=== PATIENT | female | born 1945 | race Caucasian/White ===

== ENCOUNTER → 2023-05-24 12:52 | Outpatient (REF) | payer MEDICARE, SELFPAY | LOC: WDC 12:52 | PROVIDERS: ATTENDING PHYSICIAN Family Medicine | DX: Z12.31 Encounter for screening mammogram for malignant neoplasm of breast (principal) | CPT/HCPCS: 77063; 77067 ==

== ENCOUNTER 2023-07-17 23:31 | Emergency (ER) | payer MEDICARE, SELFPAY ==
[2023-07-17 23:46] VITALS: BP 138/86
[2023-07-17 23:53] VITALS: BP 145/85
[2023-07-18] VITALS: BP 152/80
[2023-07-18 00:23] LABS: ALT (SGPT) 28 U/L (0-35); AST (SGOT) 31 U/L (14-36); Albumin 4.4 g/dl (3.5-5.0); Alkaline Phosphatase 94 U/L (38-126); Blood Urea Nitrogen 15 mg/dl (7-17); Calcium 9.2 mg/dl (8.4-10.2); Carbon Dioxide 25 mmol/L (22-30); Chloride 95 mmol/L (98-107); Glucose 189 mg/dl (70-99); Sodium 130 mmol/L (135-145); Total Bilirubin 0.5 mg/dl (0.2-1.3); Total Protein 7.1 g/dl (6.3-8.2); eGFR > 60.00
[2023-07-18 00:32] LABS: % Eosinophils 1.8 % (0-6); % Immature Granulocytes 0.8 % (0-0.5); % Lymphocytes 38.9 % (20.5-51.1); % Monocytes 11.4 % (1.7-9.3); % Neutrophils 46.1 % (42.2-75.2); Absolute Basophils 0.1 10^3/uL (0-0.2); Absolute Eosinophils 0.2 10^3/uL (0-0.7); Absolute Immature Granulocytes 0.1 10^3/uL (0-0.05); Absolute Lymphocytes 3.3 10^3/uL (1.2-3.4); Absolute Neutrophils 3.9 10^3/uL (1.4-6.5); Hematocrit 34.7 % (37.0-47.0); Mean Corp Hgb Conc. 34.6 g/dL (33.0-37.0); Mean Corpuscular Volume 86.8 fL (81.0-99.0); Mean Platelet Volume 11.6 fL (7.4-10.4); Nucleated Red Blood Cells % 0 %; Platelet Count 213 10^3/uL (130-400); White Blood Cell Count 8.4 10^3/uL (4.8-10.8)
--- NOTE | 2023-07-18 00:33 | ED.GENMED ---
History of Present Illness
General
Chief Complaint: Fainting Sensation
Source: patient
Exam Limitations: none
Time Seen by Provider: 07/17/23 23:56
Travel History
Have you had any contact with someone who has COVID-19?: No
Do you have any symptoms of coronavirus? Fever > 100 degrees, chills, cough, shortness of breath, sore throat, loss of taste or smell, muscle aches, or headache?: No
History of Present Illness
History of Present Illness:
This is a 77 year old female that comes in with multiple complaints. States that for the past few days her BP has etienne elevated. State that today she felt nauseated and lightheaded. States that at one time today her BP was
172/ 90. State that she has had lower back pain and right sided abd pain and bloating. States that she also felt SOB. Denies any fever, chills, chest pain, vomiting, diarrhea, headache, urinary burning.
Past History
Past History
ED Past Medical History: CAD, GERD, HTN, Hypercholesterolemia, NIDDM (splenectomy), [place] and Other (kidney stone, anemia, UTI, Chest pain, Renal calculus, Iron Def anemia, sepsis)
ED Past Surgical History: Appendectomy, Cardiac (Stents X 1), Tonsilectomy, Urological and Other (splenectomy)
Social History
Tobacco: Non-smoker
Alcohol: None
Personal:
Living: with family
Review of Systems
Review of Systems
All Other Systems: ROS reviewed and negative except as documented in HPI and ROS
Constitutional: Reports no symptoms; Denies fever or chills
EENT: Reports no symptoms
Respiratory: Reports trouble breathing; Denies cough
Cardiac: Reports no symptoms; Denies chest pain
ABD/GI: Reports abdominal pain and nausea; Denies vomiting or diarrhea
: Reports no symptoms; Denies dysuria, frequency or urgency
Musculoskeletal: Reports back pain
Skin: Reports no symptoms
Neurological: Reports other (Lightheaded); Denies headache
Psychiatric: Reports no symptoms
Phy Exam
General Physical Exam
General Presentation: no apparent distress
General age: appears stated age
General Skin: warm and dry
General Habitus: elderly
General Mental: alert
General Hydration: appears well hydrated
ENT Exam
ENT Exam: TM's normal, pharynx normal and neck supple
Eye Exam
Eye Exam: EOMI
Cardiovascular Exam
Cardiovascular Exam: regular rate/rhythm, no edema and normal peripheral pulses
Pulmonary Exam
Pulmonary Exam: lungs clear, no respiratory distress, no rales, chest non tender, no crackles, no rhonchi, no wheezing and no cough
Gastrointestinal Exam
Gastrointestinal Exam: normal bowel sounds, soft, no organomegaly, no pulsatile mass, non distended and tender (Right Sided abd tenderness with palpation)
Musculoskeletal Exam
Musculoskeletal Exam: full ROM and no edema
Skin Exam
Skin Exam: normal color, warm/dry, no rash and no petechia
Psychiatric Exam
Psychiatric Exam: normal mood/affect
Course
Orders/Labs/Results
Orders:
Orders
07/17/23 23:36
Electrocardiogram (*1) Urgent
Reason for Study: Syncope
EKG- Treatment ONCE
Complete Blood Count/With Diff Urgent
Comprehensive Metabolic Panel Urgent
Troponin I Urgent
07/18/23 00:31
0.9% Sodium Chloride 1000 ml [Nss] 1,000 ml IV BOLUS
Ondansetron Injectable [Zofran] 4 mg IV NOW STA
07/18/23 00:32
CT Abd/pel (oral only)-DH Only Urgent
Comment: Marceilna did not want to cx asked tech to modify
Reason For Exam: rIGHT sIDED ABD PAIN
CR Chest - 2 Views Urgent
Comment:
Reason For Exam: sob
07/18/23 00:54
Urinalysis Reflex To Culture Urgent
Date Specimen was Collected: 07/18/23
Time Specimen was Collected: 00:52
Urine Microscopic Reflex Cult Urgent
Urine Culture Urgent
ANGIE Source: U
Specimen Description:
Date Specimen was Collected: 07/18/23
Time Specimen was Collected: 00:52
07/18/23 01:03
Iohexol [Omnipaque] 50 ml .ROUTE .STK-MED ONE
07/18/23 01:06
Iohexol [Omnipaque] See Protocol PO NOW STA
Abnormal Lab Results
07/18/23 07/18/23
00:01 00:54
RBC 4.00 L 10^6/uL
(4.20-5.40)
Hct 34.7 L %
(37.0-47.0)
MPV 11.6 H fL
(7.4-10.4)
Abs Immat Gran (auto) 0.1 H 10^3/uL
(0-0.05)
Absolute Monos (auto) 1.0 H 10^3/uL
(0.1-0.6)
Immature Gran % 0.8 H %
(0-0.5)
Monocytes % 11.4 H %
(1.7-9.3)
Sodium 130 L mmol/L
(135-145)
Chloride 95 L mmol/L
(98-107)
Glucose 189 H mg/dl
(70-99)
Leukocyte Esterase Rfl 1+ A
(Negative)
Urine RBC 3-6 A /HPF
(0-2)
Urine Bacteria (Reflex) Moderate A
(Negative)
Urine Glucose 1+ A
(Negative)
07/18/23 00:01
07/18/23 00:01
Vital Signs
Initial and Last Documented VS:
Initial Vital Signs
Temp Pulse Resp BP Pulse Ox
98.1 F 89 16 138/86 99
07/17/23 23:46 07/17/23 23:46 07/17/23 23:46 07/17/23 23:46 07/17/23 23:46
Last Documented Vital Signs
Temp Pulse Resp BP Pulse Ox
98.1 F 95 19 140/85 97
07/17/23 23:46 07/18/23 03:30 07/18/23 03:30 07/18/23 03:01 07/18/23 00:30
MDM/Problems Addressed
Differential Diagnosis Includes:
Renal calculus, UTI, Hypertension
MDM/Problems Addressed:
This is a 77 year old female that comes in with c/o elevated BP, abd pain and low back pain. States that her BP has been elevated for the past few days and today she was nauseated, lightheaded and had some low back pain.
Will get labs. CT scan, give IV fluids and get urine.
Back into see patient. Explained that her blood work shows that her Sodium is a little low, Otherwise her blood work is normal. Patient troponin is normal and the CT of the abd is negative for any acute process. Patient has low back pain and her abd
discomfort is most likely related to the low back pain as the nerves wrap around to the abd. Patient to use Heat or ice to the low back. Tylenol for pain. Follow up with the PCP on Friday as scheduled. RETURN WITH ANY CONCERNS.
Chronic conditions affecting care:
Renal calculus,
Chronic conditions affecting care: HTN
Acute Exacerbation and/or Progression of Chronic Illness: HTN
*Radiology
Radiology exam reviewed: preliminary read by ED provider (Chest- negative for active disease), radiology read reviewed (CT night hawk- Suboptimal exam without IV Contrast. No obstructing renal stones. NO boel obstruction. Pleural calcified plaques
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 Small hiatal hernia. No cholecystitis or pancreatitis. Spleen is atrophic or surgically absent. Status post ) and other (CT conto- appendectomy. Litzy mesentery with mesenteric
adenopathy reflecting chronic sclerosing mesenteritis. )
*Pulse Oximetry
Patient hypoxic: no
*EKG
Interpreted by ED Provider?: Yes
Heart Rate: 92
Rate: normal
Rhythm: sinus
[place]: normal axis
Interval: normal interval
QRS Pattern: normal QRS
Ischemia: non-specific ST changes (and T wave- III, aVR, V1, V2, Checked by Dr. Warner)
*[place] Interpretation
Rate: normal
Heart Rate: 87
Rhythm: sinus
*Critical Care Note
Total Time (30-74mins, 75-104mins- exclusive of procedures): Not Applicable
ED Attending Note
-
Portions of this chart may have been created with voice recognition software.� Occasional wrong word or��sound alike� substitutions may have occurred due to the inherent limitations of voice recognition software.
Discharge Plan
Departure
Patient Disposition: Home (Routine Discharge)
Date of Disposition: 07/18/23
Time of Disposition: 04:05
Patient with high blood pressure during this ER visit?: Yes
Condition: Good
Covid-19: Not Applicable
Discharge Problem:
Low back pain, Abdominal pain
Instructions: Low Back Pain (DC), Abdominal Pain, Adult ED, BLOOD PRESSURE
Prescriptions:
No Action
aspirin 81 MG tablet,delayed release (DR/EC)
81 mg PO DAILY
metformin 500 MG tablet extended release 24 hr
500 mg PO QPM
Hold Instructions: Resume on 02/21/22. Restart usual dose of metformin 02/21/22
metoprolol tartrate 50 mg Tablet
50 mg PO BID Qty: 60 11RF
Rx Instructions:
Incr Lopressor(metoprolol tartrate)to 50 mg(two 25 mg tabs or one 50 mg tab)2x a day
atorvastatin 80 mg Tablet
80 mg PO QPM Qty: 30 11RF
pantoprazole [Protonix] 40 mg tablet,delayed release (DR/EC)
40 mg PO DAILY Qty: 30 11RF
Brilinta 90 mg tablet
90 mg PO BID Qty: 60 11RF
Referrals:
Valery Richardson MD [Family Provider] - 07/21/23
Activity Restrictions/Additional Instructions:
As discussed, your blood work shows that your Sodium is low. Please try eating some canned soup or boxed food to help increase your sodium level. Please limit your water intake to 6-8oz glasses daily. Your abdominal pain may be cause by your low
back pain as the nerves from the back wrap around to the abd. There is nothing acute on the CT scan. Follow up with the family doctor on Friday as scheduled. IF YOU HAVE ANY OTHER CONCERNS PLEASE RETURN TO THE EMERGENCY ROOM.
Interventions
Interventions:
*Risk Screen - Suicide Last Done: 07/17/23 23:46
*General Assessment Last Done: 07/17/23 23:46
*Neglect/Abuse Screening Last Done: 07/17/23 23:46
ED- Cardiac Assessment Last Done: 07/18/23 00:30
ED- Neurological Assessment Last Done: 07/18/23 00:30
Discharge Date and Time
Print Language: FRENCH
[2023-07-18 00:36] LABS: Troponin I < 0.012 ng/ml
[2023-07-18] MEDS: NSS 1000 IV (00:43)
[2023-07-18] MEDS: ZOFRAN 4 MG IV (00:43)
[2023-07-18 01:01] LABS: Urine Albumin Negative (Neg - Trace); Urine Bilirubin Negative (Negative); Urine Character Clear (Clear); Urine Color Yellow; Urine Glucose 1+ (Negative); Urine Ketone Negative (Negative); Urine Leukocyte 1+ (Negative); Urine Nitrite Negative (Negative); Urine Occult Blood Negative (Negative); Urine Urobilinogen Negative (Neg - 1+)
[2023-07-18] MEDS: OMNIPAQUE 50 ML PO (01:07)
[2023-07-18 01:29] LABS: Urine Squamous Cell >30 /LPF (Few)
[2023-07-18 01:33] LABS: Urine Bacteria Moderate (Negative)
[2023-07-18 03:01] VITALS: BP 140/85
== END 2023-07-18 04:46 | disposition home or self-care (01) ==
LOC: EMR 23:31
PROVIDERS: Clinical Nurse Specialist Family Health; Emergency Medicine; EMERGENCY PHYSICIAN Emergency Medicine; FAMILY PHYSICIAN Family Medicine
DX: M54.50 Low back pain, unspecified (principal); R10.9 Unspecified abdominal pain; I25.10 Atherosclerotic heart disease of native coronary artery without angina pectoris; K21.9 Gastro-esophageal reflux disease without esophagitis; I10 Essential (primary) hypertension; E78.00 Pure hypercholesterolemia, unspecified; E11.9 Type 2 diabetes mellitus without complications; I25.2 Old myocardial infarction; D50.9 Iron deficiency anemia, unspecified
CPT/HCPCS: 99284; 96374; 71046; 74176; 80053; 81003; 81015; 84484; 85025; 87086; 93005

== ENCOUNTER → 2023-08-08 08:20 | Outpatient (REF) | payer MEDICARE, SELFPAY | LOC: PAVMRI 08:20 | PROVIDERS: ATTENDING PHYSICIAN Pain Medicine Interventional Pain Medicine; FAMILY PHYSICIAN Family Medicine | DX: M54.16 Radiculopathy, lumbar region (principal) | CPT/HCPCS: 72148 ==

== ENCOUNTER → 2023-08-20 08:09 | Outpatient (REF) | payer MEDICARE, SELFPAY | LOC: RCS 08:09 | PROVIDERS: ATTENDING PHYSICIAN Nuclear Medicine Nuclear Cardiology; FAMILY PHYSICIAN Family Medicine | DX: I25.10 Atherosclerotic heart disease of native coronary artery without angina pectoris (principal); I25.2 Old myocardial infarction; Z95.5 Presence of coronary angioplasty implant and graft; I10 Essential (primary) hypertension | CPT/HCPCS: 93306 ==

== ENCOUNTER 2024-02-11 22:54 | Emergency (ER) | payer MEDICARE, SELFPAY ==
[2024-02-11 22:59] VITALS: BP 181/90
[2024-02-12 02:11] VITALS: BMI 26.9
[2024-02-12] MEDS: ZOFRAN 4 MG IV (02:27)
[2024-02-12] MEDS: DILAUDID 0.5 MG IV (02:27)
[2024-02-12] MEDS: NSS 1000 IV (02:27)
[2024-02-12 02:30] LABS: % Basophils 0.4 % (0-2); % Eosinophils 1.3 % (0-6); % Immature Granulocytes 0.4 % (0-0.5); % Lymphocytes 23.9 % (20.5-51.1); % Monocytes 10.4 % (1.7-9.3); % Neutrophils 63.6 % (42.2-75.2); Absolute Basophils 0.1 10^3/uL (0-0.2); Absolute Eosinophils 0.2 10^3/uL (0-0.7); Absolute Immature Granulocytes 0.1 10^3/uL (0-0.05); Absolute Lymphocytes 3.1 10^3/uL (1.2-3.4); Absolute Monocytes 1.3 10^3/uL (0.1-0.6); Absolute Neutrophils 8.1 10^3/uL (1.4-6.5); Hematocrit 35.9 % (37.0-47.0); Hemoglobin 12.2 g/dL (12.0-16.0); Mean Corpuscular Hgb 28.8 pg (27.0-31.0); Mean Corpuscular Volume 84.9 fL (81.0-99.0); Mean Platelet Volume 11.7 fL (7.4-10.4); Nucleated Red Blood Cells % 0 %; Platelet Count 201 10^3/uL (130-400); Red Blood Cell Count 4.23 10^6/uL (4.20-5.40); Red Cell Dist. Width 14.6 % (11.5-14.5); White Blood Cell Count 12.8 10^3/uL (4.8-10.8)
[2024-02-12 02:35] VITALS: BP 145/67
[2024-02-12 02:49] LABS: ALT (SGPT) 41 U/L (0-35); AST (SGOT) 36 U/L (14-36); Albumin 4.5 g/dl (3.5-5.0); Alkaline Phosphatase 142 U/L (38-126); Blood Urea Nitrogen 17 mg/dl (7-17); Calcium 9.4 mg/dl (8.4-10.2); Carbon Dioxide 23 mmol/L (22-30); Chloride 99 mmol/L (98-107); Estimated Creatinine Clearance 57 ml/min; Glucose 120 mg/dl (70-99); Potassium 3.9 mmol/L (3.5-5.1); Sodium 132 mmol/L (135-145); Total Bilirubin 1.2 mg/dl (0.2-1.3); Total Protein 7.3 g/dl (6.3-8.2); eGFR > 60.00
[2024-02-12 02:56] LABS: Urine Albumin Negative (Neg - Trace); Urine Bilirubin Negative (Negative); Urine Character Clear (Clear); Urine Color Yellow; Urine Glucose Negative (Negative); Urine Ketone Negative (Negative); Urine Leukocyte Negative (Negative); Urine Nitrite Negative (Negative); Urine Occult Blood Negative (Negative); Urine Urobilinogen Negative (Neg - 1+)
--- NOTE | 2024-02-12 02:56 | ED.GENMED ---
History of Present Illness
<Elayne Wall NP - Last Filed: 02/12/24 15:09>
General
Chief Complaint: Female Yarn Conditioner/Gu symptoms
Source: patient
Exam Limitations: none
Time Seen by Provider: 02/12/24 01:31
Nursing documentation reviewed up to this point in time: agreed with
History of Present Illness
History of Present Illness:
Patient to ED with complaint of right flank pain. Symptoms started today. History of kidney stones but states this feels different. TOok home UTI test and was positive. Brought to ED by spouse for eval.
Past History
<Elayne Wall NP - Last Filed: 02/12/24 15:09>
Past History
ED Past Medical History: CAD, GERD, HTN, Hypercholesterolemia, NIDDM (splenectomy), [place] and Other (kidney stone, anemia, UTI, Chest pain, Renal calculus, Iron Def anemia, sepsis)
ED Past Surgical History: Appendectomy, Cardiac (Stents X 1), Tonsilectomy, Urological and Other (splenectomy)
Social History
Tobacco: Non-smoker
Alcohol: None
Personal:
Living: with family
Review of Systems
<Elayne Wall NP - Last Filed: 02/12/24 15:09>
Review of Systems
Allergies reviewed?: Yes
All Other Systems: ROS reviewed and negative except as documented in HPI and ROS
Constitutional: Reports no symptoms
EENT: Reports no symptoms
Respiratory: Reports no symptoms
Cardiac: Reports no symptoms
ABD/GI: Reports no symptoms
: Reports flank pain
Musculoskeletal: Reports no symptoms
Skin: Reports no symptoms
Neurological: Reports no symptoms
Psychiatric: Reports no symptoms
Phy Exam
<Elayne Wall NP - Last Filed: 02/12/24 15:09>
General Physical Exam
General Presentation: well appearing and mild distress
General age: appears stated age
General Skin: warm and dry
General Habitus: normal
Cardiovascular Exam
Cardiovascular Exam: regular rate/rhythm and no edema
Pulmonary Exam
Pulmonary Exam: no respiratory distress and chest non tender
Gastrointestinal Exam
Gastrointestinal Exam: normal bowel sounds, non tender, soft, no organomegaly and non distended
Musculoskeletal Exam
Musculoskeletal Exam: full ROM
Skin Exam
Skin Exam: normal color, warm/dry and no rash
Psychiatric Exam
Psychiatric Exam: normal mood/affect
Course
<Elayne Wall NP - Last Filed: 02/12/24 15:09>
Orders/Labs/Results
Orders:
Orders
02/12/24 01:41
HYDROmorphone [Dilaudid] 0.5 mg IV NOW STA
Ondansetron Injectable [Zofran] 4 mg IV NOW STA
02/12/24 01:42
0.9% Sodium Chloride 1000 ml [Nss] 1,000 ml IV BOLUS
02/12/24 02:23
Complete Blood Count/With Diff Urgent
Comprehensive Metabolic Panel Urgent
Urinalysis Reflex To Culture Urgent
Date Specimen was Collected: 02/12/24
Time Specimen was Collected: 01:45
02/12/24 02:41
CT Abd/pel Without Iv Or Oral Urgent
Comment:
Reason For Exam: right flank pain
Abnormal Lab Results
02/12/24
02:23
WBC 12.8 H 10^3/uL
(4.8-10.8)
Hct 35.9 L %
(37.0-47.0)
RDW 14.6 H %
(11.5-14.5)
MPV 11.7 H fL
(7.4-10.4)
Abs Immat Gran (auto) 0.1 H 10^3/uL
(0-0.05)
Absolute Neuts (auto) 8.1 H 10^3/uL
(1.4-6.5)
Absolute Monos (auto) 1.3 H 10^3/uL
(0.1-0.6)
Monocytes % 10.4 H %
(1.7-9.3)
Sodium 132 L mmol/L
(135-145)
Glucose 120 H mg/dl
(70-99)
ALT 41 H U/L
(0-35)
Alkaline Phosphatase 142 H U/L
(38-126)
02/12/24 02:23
02/12/24 02:23
Vital Signs
Initial and Last Documented VS:
Initial Vital Signs
Temp Pulse Resp BP Pulse Ox
98.7 F 95 18 181/90 99
02/11/24 22:59 02/11/24 22:59 02/11/24 22:59 02/11/24 22:59 02/11/24 22:59
Last Documented Vital Signs
Temp Pulse Resp BP Pulse Ox
98.4 F 102 18 125/59 96
02/12/24 02:35 02/12/24 04:30 02/11/24 22:59 02/12/24 05:53 02/12/24 05:53
<Micah Rojas, DO - Last Filed: 02/12/24 05:44>
Orders/Labs/Results
Orders:
Orders
02/12/24 01:41
HYDROmorphone [Dilaudid] 0.5 mg IV NOW STA
Ondansetron Injectable [Zofran] 4 mg IV NOW STA
02/12/24 01:42
0.9% Sodium Chloride 1000 ml [Nss] 1,000 ml IV BOLUS
02/12/24 02:23
Complete Blood Count/With Diff Urgent
Comprehensive Metabolic Panel Urgent
Urinalysis Reflex To Culture Urgent
Date Specimen was Collected: 02/12/24
Time Specimen was Collected: 01:45
02/12/24 02:41
CT Abd/pel Without Iv Or Oral Urgent
Comment:
Reason For Exam: right flank pain
Abnormal Lab Results
02/12/24
02:23
WBC 12.8 H 10^3/uL
(4.8-10.8)
Hct 35.9 L %
(37.0-47.0)
RDW 14.6 H %
(11.5-14.5)
MPV 11.7 H fL
(7.4-10.4)
Abs Immat Gran (auto) 0.1 H 10^3/uL
(0-0.05)
Absolute Neuts (auto) 8.1 H 10^3/uL
(1.4-6.5)
Absolute Monos (auto) 1.3 H 10^3/uL
(0.1-0.6)
Monocytes % 10.4 H %
(1.7-9.3)
Sodium 132 L mmol/L
(135-145)
Glucose 120 H mg/dl
(70-99)
ALT 41 H U/L
(0-35)
Alkaline Phosphatase 142 H U/L
(38-126)
02/12/24 02:23
02/12/24 02:23
Vital Signs
Initial and Last Documented VS:
Initial Vital Signs
Temp Pulse Resp BP Pulse Ox
98.7 F 95 18 181/90 99
02/11/24 22:59 02/11/24 22:59 02/11/24 22:59 02/11/24 22:59 02/11/24 22:59
Last Documented Vital Signs
Temp Pulse Resp BP Pulse Ox
98.4 F 102 18 125/59 96
02/12/24 02:35 02/12/24 04:30 02/11/24 22:59 02/12/24 05:53 02/12/24 05:53
<Micah Rojas DO - Last Filed: 02/12/24 05:44>
MDM/Problems Addressed
Differential Diagnosis Includes:
Kidney stone, mesenteric panniculitis
MDM/Problems Addressed:
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 No other acute findings on CT abdomen pelvis or labs. Stable for discharge.
Chronic conditions affecting care: HTN, CAD and Previous abdomnial surgery (Splenectomy)
<DO Kathleen Brown Last Filed: 02/12/24 05:44>
*Radiology
Radiology exam reviewed: radiology read reviewed (CT abdomen pelvis shows mesenteric panniculitis)
*Pulse Oximetry
Patient hypoxic: no
*EKG
Interpreted by ED Provider?: NA
*Nurse Charge Rn Interpretation
Rate: Nurse Charge Rn- N/A
*Critical Care Note
Total Time (30-74mins, 75-104mins- exclusive of procedures): Not Applicable
<DO Kathleen Brown Last Filed: 02/12/24 05:44>
Patient Management
Social determinants of health affecting care: Living situation
Escalation/DeEscalation of care consider admission/obs:
Admit not indicated
ED Attending Note
<Elayne Wall NP - Last Filed: 02/12/24 15:09>
-
Portions of this chart may have been created with voice recognition software.� Occasional wrong word or��sound alike� substitutions may have occurred due to the inherent limitations of voice recognition software.
<DO Kathleen Brown Last Filed: 02/12/24 05:44>
ED Attending Note
Patient seen and examined by attending physician: Yes
ED Attending Note:
I have reviewed and agree with history and treatment plan by Elayne Wall. My exam revealed 78-year-old female no acute distress. CT consistent with mesenteric panniculitis. No other acute findings. Stable for discharge.
Discharge Plan
Departure
Patient Disposition: Home (Routine Discharge)
Date of Disposition: 02/12/24
Time of Disposition: 05:43
Patient with high blood pressure during this ER visit?: Yes
Condition: Good
Discharge Problem:
Mesenteric panniculitis
Instructions: Abdominal Pain, BLOOD PRESSURE
Prescriptions:
No Action
aspirin 81 MG tablet,delayed release (DR/EC)
81 mg PO DAILY
metformin 500 MG tablet extended release 24 hr
500 mg PO QPM
metoprolol tartrate 50 mg Tablet
50 mg PO BID Qty: 60 11RF
Rx Instructions:
Incr Lopressor(metoprolol tartrate)to 50 mg(two 25 mg tabs or one 50 mg tab)2x a day
atorvastatin 80 mg Tablet
80 mg PO QPM Qty: 30 11RF
clopidogrel [Plavix] 75 mg Tablet
75 mg PO DAILY
pantoprazole [Protonix] 40 mg tablet,delayed release (DR/EC)
40 mg PO DAILY PRN (Reason: stomach acid protection)
multivitamin Tablet
1 tab PO DAILY
Referrals:
UNKNOWN - PT NOT,INTERVIEWE [Family Provider] -
Activity Restrictions/Additional Instructions:
Follow-up with primary care. Return for any concerns.
Interventions
Interventions:
*Risk Screen - Suicide Last Done: 02/12/24 02:11
*General Assessment Last Done: 02/11/24 22:59
*Neglect/Abuse Screening Last Done: 02/12/24 06:00
ED- Fall Risk Assessment Last Done: 02/12/24 02:11
*ED COVID-19 Vaccine History Last Done: 02/12/24 02:11
*Nursing Disposition Last Done: 02/12/24 06:00
ED-Female Genitourinary Assessment Last Done: 02/12/24 02:11
Discharge Date and Time
Discharge Date/Time: 02/12/24 06:00
Print Language: [place]
[2024-02-12 04:07] VITALS: BP 133/59
[2024-02-12 05:53] VITALS: BP 125/59
== END 2024-02-12 06:00 | disposition home or self-care (01) ==
LOC: EMR 22:54
PROVIDERS: Nurse Practitioner; EMERGENCY PHYSICIAN Emergency Medicine
DX: K65.4 Sclerosing mesenteritis (principal); I25.10 Atherosclerotic heart disease of native coronary artery without angina pectoris; K21.9 Gastro-esophageal reflux disease without esophagitis; I10 Essential (primary) hypertension; E11.9 Type 2 diabetes mellitus without complications; E78.00 Pure hypercholesterolemia, unspecified; Z87.442 Personal history of urinary calculi; Z90.81 Acquired absence of spleen; Z90.49 Acquired absence of other specified parts of digestive tract; Z95.5 Presence of coronary angioplasty implant and graft
CPT/HCPCS: 96374; 96375; 96361; 99284; 74176; 80053; 81003; 85025

== ENCOUNTER 2024-04-29 07:52 | Inpatient (IN) | payer MEDICARE, SELFPAY ==
[2024-04-27] VITALS (8 sets, daily range): BP systolic 147–191; BP diastolic 65–89; BMI 26.5; BMI 27.2
[2024-04-27 18:39] LABS: % Basophils 0.7 % (0-2); % Eosinophils 2.9 % (0-6); % Immature Granulocytes 0.4 % (0-0.5); % Lymphocytes 44.5 % (20.5-51.1); % Monocytes 9.1 % (1.7-9.3); % Neutrophils 42.4 % (42.2-75.2); Absolute Basophils 0.1 10^3/uL (0-0.2); Absolute Eosinophils 0.3 10^3/uL (0-0.7); Absolute Lymphocytes 4.2 10^3/uL (1.2-3.4); Absolute Monocytes 0.9 10^3/uL (0.1-0.6); Hematocrit 33.8 % (37.0-47.0); Hemoglobin 11.4 g/dL (12.0-16.0); Mean Corp Hgb Conc. 33.7 g/dL (33.0-37.0); Mean Corpuscular Hgb 29.2 pg (27.0-31.0); Mean Corpuscular Volume 86.7 fL (81.0-99.0); Mean Platelet Volume 11.7 fL (7.4-10.4); Nucleated Red Blood Cells % 0 %; Platelet Count 224 10^3/uL (130-400); Red Cell Dist. Width 15.9 % (11.5-14.5); White Blood Cell Count 9.4 10^3/uL (4.8-10.8)
[2024-04-27 18:46] LABS: ALT (SGPT) 34 U/L (0-35); AST (SGOT) 31 U/L (14-36); Alkaline Phosphatase 123 U/L (38-126); Blood Urea Nitrogen 16 mg/dl (7-17); Carbon Dioxide 21 mmol/L (22-30); Chloride 96 mmol/L (98-107); Glucose 207 mg/dl (70-99); Sodium 128 mmol/L (135-145); Total Bilirubin 0.7 mg/dl (0.2-1.3); Total Protein 6.6 g/dl (6.3-8.2); eGFR > 60.00
[2024-04-27 18:57] LABS: Troponin I < 0.012 ng/ml
--- NOTE | 2024-04-27 19:43 | ED.GENMED ---
History of Present Illness
General
Chief Complaint: Chest Pain
Source: patient and family
Exam Limitations: none
Time Seen by Provider: 04/27/24 19:42
History of Present Illness
History of Present Illness:
78-year-old female complaining of chest pressure with some radiation to the left ear with shortness of breath that started about 5 this afternoon. [place] very shaky. Went to her daughter's office and noted to have significant systolic hypertension.
Has had a few ongoing episodes of recurring episodes since then much better. History of cardiac stent replacement 2 years ago. No pleuritic pain no shortness of breath at this time. No leg pain.
Past History
Past History
ED Past Medical History: CAD, GERD, HTN, Hypercholesterolemia, NIDDM (splenectomy), [place] and Other (kidney stone, anemia, UTI, Chest pain, Renal calculus, Iron Def anemia, sepsis)
ED Past Surgical History: Appendectomy, Cardiac (Stents X 1), Tonsilectomy, Urological and Other (splenectomy)
Social History
Tobacco: Non-smoker
Alcohol: None
Personal:
Living: with family
Review of Systems
Review of Systems
All Other Systems: Not applicable
Constitutional: Denies fever
Respiratory: Denies cough or hemoptysis
ABD/GI: Reports no symptoms
Phy Exam
Physical Exam
Physical Exam:
GENERAL: Alert and oriented in no apparent distress
EYE: Orbits normal.
NECK: Supple, no significant adenopathy.
ENT: Pharynx without erythema
CARDIAC: Mildly tachycardic and regular no murmur
LUNGS: Clear breath sounds,normal
ABDOMEN: Soft, without focal tenderness or distention
NEUROLOGICAL: Alert and oriented , grossly non-focal
SKIN: Warm and dry, no rash or lesion, no discoloration, skin intact.
MUSCULOSKELETAL: No edema,no deformity.Good color
PSYCH: Normal and appropriate interaction.
Scores
Heart Score for Chest Pain Patients
STEMI patient?: No
History: Moderately Suspicious
ECG: Nonspecific Repolarization
Age: >/= 65 years
Risk Factors: >/= 3 Risk Factors or History of CAD
Troponin: </= Normal Limit
Heart Score for Chest Pain Patients: 6
Heart Score Risk: 20.3% MACE over next 6 weeks
Course
Orders/Labs/Results
Orders:
Orders
04/27/24 17:53
ECG [Electrocardiogram (*1)] Urgent
Reason for Study: Chest Pain
EKG- Treatment ONCE
04/27/24 18:12
Complete Blood Count/With Diff Urgent
Comprehensive Metabolic Panel Urgent
Troponin I Urgent
04/27/24 19:56
CXR2 [CR Chest - 2 Views ] Urgent
Comment:
Reason For Exam: Chest pain/short of breath
04/27/24 20:22
D-Dimer Urgent
Abnormal Lab Results
04/27/24
18:12
RBC 3.90 L 10^6/uL
(4.20-5.40)
Hgb 11.4 L g/dL
(12.0-16.0)
Hct 33.8 L %
(37.0-47.0)
RDW 15.9 H %
(11.5-14.5)
MPV 11.7 H fL
(7.4-10.4)
Absolute Lymphs (auto) 4.2 H 10^3/uL
(1.2-3.4)
Absolute Monos (auto) 0.9 H 10^3/uL
(0.1-0.6)
Sodium 128 L mmol/L
(135-145)
Chloride 96 L mmol/L
(98-107)
Carbon Dioxide 21 L mmol/L
(22-30)
Glucose 207 H mg/dl
(70-99)
04/27/24 18:12
04/27/24 18:12
Vital Signs
Initial and Last Documented VS:
Initial Vital Signs
Temp Pulse Resp BP Pulse Ox
97.9 F 122 16 191/89 100
04/27/24 18:07 04/27/24 18:07 04/27/24 18:07 04/27/24 18:07 04/27/24 18:07
Last Documented Vital Signs
Temp Pulse Resp BP Pulse Ox
97.9 F 99 15 147/75 96
04/27/24 18:07 04/27/24 21:15 04/27/24 21:15 04/27/24 21:05 04/27/24 21:15
MDM/Problems Addressed
Differential Diagnosis Includes:
Patient describing nonexertional chest pressure to the left ear with shortness of breath. History of cardiac stenting. Some waxing and waning component. Initial workup stable although there are some ischemic changes on the EKG. Some tachycardia.
Pulmonary emboli also to be entertained. Warrants admission. Workup in progress
*Radiology
Radiology exam reviewed: preliminary read by ED provider (Negative)
*Pulse Oximetry
Patient hypoxic: no
*EKG
Interpreted by ED Provider?: Yes
Interpretation: abnormal
Comparison EKG: changes noted
Heart Rate: 117
Rate: tachycardiac
Rhythm: sinus
[place]: normal axis
Interval: normal interval
QRS Pattern: normal QRS
Ischemia: T-wave inversion (Laterally)
*Critical Care Note
Total Time (30-74mins, 75-104mins- exclusive of procedures): Not Applicable
Data Reviewed
Review of Other/Old Records Reveals: Labs, Records and Testing
Update Note
Update Note:
Patient is remained medically stable. D-dimer negative. Highly doubt pulmonary emboli. Chest x-ray negative. Does have some rate related ischemic changes on her EKG. Warrants inpatient workup
ED Attending Note
-
Portions of this chart may have been created with voice recognition software.� Occasional wrong word or��sound alike� substitutions may have occurred due to the inherent limitations of voice recognition software.
Discharge Plan
Departure
Patient Disposition: Admit
Date of Disposition: 04/27/24
Time of Disposition: 21:33
Presentation/result/management discussed w/ accepting MD/DO: Hospitalist
Discharge Problem:
Possible new onset angina, History of cardiac stents
Prescriptions:
No Action
aspirin 81 MG tablet,delayed release (DR/EC)
81 mg PO DAILY
metformin 500 MG tablet extended release 24 hr
500 mg PO QPM
metoprolol tartrate 50 mg Tablet
50 mg PO BID Qty: 60 11RF
Rx Instructions:
Incr Lopressor(metoprolol tartrate)to 50 mg(two 25 mg tabs or one 50 mg tab)2x a day
atorvastatin 80 mg Tablet
80 mg PO QPM Qty: 30 11RF
clopidogrel [Plavix] 75 mg Tablet
75 mg PO DAILY
pantoprazole [Protonix] 40 mg tablet,delayed release (DR/EC)
40 mg PO DAILY PRN (Reason: stomach acid protection)
multivitamin Tablet
1 tab PO DAILY
Referrals:
Valery Richardson MD [Family Provider] -
Interventions
Interventions:
*Risk Screen - Suicide Last Done: 04/27/24 17:56
*General Assessment Last Done: 04/27/24 17:56
*Neglect/Abuse Screening Last Done: 04/27/24 17:56
*ED- Fall Risk Assessment Last Done: 04/27/24 19:39
*ED COVID-19 Vaccine History Last Done: 04/27/24 19:39
ED- Cardiac Assessment Last Done: 04/27/24 19:39
Discharge Date and Time
Print Language: [place]
[2024-04-27 20:47] LABS: D-Dimer < 0.27 ug/mlFEU (0.00-0.50)
--- NOTE | 2024-04-27 21:57 | HPS.HSE ---
Family Physician
-
Family Physician: Valery Richardson
Chief Complaint
-
Chest pain
History of Present Illness
This is a 70-year-old female with past medical history significant for coronary disease status post stenting, hyperlipidemia, diabetes not on insulin, presents to the emergency department with episode of chest discomfort and palpitations.
Patient reports she was walking in the day today when she started pressure was radiating to her right ear and associated with sensation of pounding in her right ear. She also reports pressure in her chest. She did not have dyspnea on exertion.
She did not recall any sharp chest pain that is radiating to her or jaws. She denies any radiation to the back or abdomen. She denies diaphoresis nausea or vomiting.
Patient recalls that the symptoms were similar to another episode in 2022 where she had sense of pressure palpitations or syncope and she was found to have 90% stenosis of with the stents that was placed in 2002. She reported that she followed up
with pressure sealer and tester and had cath in 2022 with PCI to the old stent and placement of a new stent. She has been on aspirin and Plavix since then. She denies any symptoms since then up until today. She denies recent exertional dyspnea. She denies
any lower extremity swelling. She denies palpitations lightheadedness or syncope.
Currently reports ongoing pressure in left ear as well as the chest. She has no cough. She has no runny nose. She has no headache. She denies any fevers or chills. No known sick contact.
In the emergency department she was normotensive with a blood pressure of 140/75 with a pulse of 91. She is satting 96% on room air. Sinus tachycardia to [address] on [address]KG with mild ST changes in the lateral leads. Troponin was negative at 0.012.
D-dimer was negative. Chest x-ray shows no infiltrates.
CBC was unremarkable. Electrolytes notable for a sodium of 128 but otherwise unremarkable. BUN and creatinine were normal. Glucose was normal.
Medical History
Past Medical History
Past Medical History: Reports CAD, HTN, SC and Other (iron def anemia , gallstone )
Past Surgical History: Reports Cardiac (stent 2002) and Other (spleenectomy )
Social History
Tobacco: Non-smoker
Alcohol: None
Drug: None
Personal:
Living: With Family ( )
Employment: Retired
Family History
Family History: Not pertinent
Allergies / Home Medications
Allergies reflects when Allergies were last updated in [facility].
Home Medications with original date entered in [facility]
Allergy/Medication List:
Allergies
Allergy/AdvReac Type Severity Reaction Status Date / Time
ciprofloxacin Allergy Shortness Verified 04/27/24 19:41
of Breath
and rash
Iodinated Contrast Media Allergy shortness Verified 04/27/24 19:41
[Iodinated Contrast Media - of breath
Oral and] and rash
iodine [Iodine] Allergy shortness Verified 04/27/24 19:41
of breath
and rash
potassium iodide Allergy shortness Verified 04/27/24 19:41
of breath
and rash
sodium iodide Allergy shortness Verified 04/27/24 19:41
of breath
and rash
Sulfa (Sulfonamide Allergy shortness Verified 04/27/24 19:41
Antibiotics) of breath
and rash
Home Medications
aspirin 81 mg tablet,delayed release 81 mg PO DAILY 01/13/08
metformin 500 mg tablet,extended release 24 hr 500 mg PO QPM 06/03/16
atorvastatin 80 mg tablet 80 mg PO QPM High cholesterol #30 tabs 02/19/22
metoprolol tartrate 50 mg tablet 50 mg PO BID Heart disease/condition #60 tabs 02/19/22
clopidogrel 75 mg tablet (Plavix) 75 mg PO DAILY 02/12/24
multivitamin 1 tab PO DAILY 02/12/24
pantoprazole 40 mg tablet,delayed release (Protonix) 40 mg PO DAILY PRN stomach acid protection 02/12/24
Review of Systems
-
History Source: Patient and Family
Constitutional: Reports No Symptoms
EENT: Reports No Symptoms
Respiratory: Reports No Symptoms
Cardiac: Reports Chest Pain and Palpitations
Abdomen/GI: Reports No Symptoms
: Reports No Symptoms
Musculoskeletal: Reports No Symptoms
Skin: Reports No Symptoms
Neurological: Reports No Symptoms
Endocrine: Reports No Symptoms
Hematologic/Lymphatic: Reports No Symptoms
Psych: Reports No Symptoms
Physical Exam
Vital Signs
Vital Signs
Temp Pulse Resp BP Pulse Ox
97.9 F 97 18 147/75 97
04/27/24 18:07 04/27/24 21:30 04/27/24 21:30 04/27/24 21:05 04/27/24 21:30
Physical Exam
General: Well Developed, Well Nourished, No Apparent Distress and Comfortable
HEENT: NormoCephalic, Anicteric, Moist mucous membranes and Atraumatic
Respiratory: Clear
Cardiac: S1/S2 and Regular Rhythm
Breast: Deferred by me
GI: Soft, Non Tender, Non Distended and Normal Bowel Sounds
Rectal: Deferred by Provider
Genito-urinary: Deferred by me
Musculoskeletal: No Clubbing, No Cyanosis and No Edema
Skin: Warm; No Rash
Neuro: AO x 3 and Nonfocal/grossly intact
Hematologic/Lymphatic: No Lymphadenopathy
Psych: Calm
Laboratory Results
-
04/27/24 18:12
04/27/24 18:12
Laboratory Results
Total Bilirubin 0.7 mg/dl (0.2-1.3) 04/27/24 18:12
AST 31 U/L (14-36) 04/27/24 18:12
ALT 34 U/L (0-35) 04/27/24 18:12
Alkaline Phosphatase 123 U/L (38-126) 04/27/24 18:12
Troponin I < 0.012 ng/ml 04/27/24 18:12
Data Reviewed
-
Diagnostic Radiology: Image Personally Visualized and interpreted
Medical Tests (Nuc Med, Echo, EKG etc): Image Personally Visualized and interpreted
Lab Data: Labs Reviewed by me
Old Records: Reviewed
Impression/Plan
-
IMPRESSION:
78-year-old with history of CAD status post SC, status post stenting with LAD stent placed in 2022 on aspirin and Plavix presents emergency department with episode of chest pressure radiating to the left temporal region and associated with a sense
of palpitations. Initial workup in the ED is negative for acute ischemia with negative troponin and ECG with mild lateral T wave changes but no ST elevation. D-dimer was negative. Chest x-ray shows no acute infiltrates. CBC was unremarkable.
Electrolytes notable for a sodium of 128 but was otherwise unremarkable. Pain is not reproducible with palpation.
PLAN:
1. Chest pain - Similar episode in the past with > 90% stent stenosis 2022. Atypical pain and negative initial testing.
- admit to telemetry
- aspirin 324 x 1 (did not take her meds today)
- continue plavix daily
- continue metoprolol 50 bid
- continue statin
- trial of SL NTG x 1
-cycle enzymes
- echo in am
- cardiology consult
2. DM II
- continue metformin 500 q pm tomorrow
3. Hyponatremia - Na trending down since last year, Now 28. No culprit meds. Euvolemic appearing
- check orthostatics
- check am cortisol and tsh
- urine osm and sodium
- start fluid restriction
- neph consult
DVT PPX - lovenox sq
code status - Full code
[2024-04-27] MEDS: LOPRESSOR 50 MG PO (22:35)
[2024-04-27] MEDS: PLAVIX 75 MG PO (22:35)
[2024-04-27] MEDS: LOW STRENGTH ASPIRIN 324 MG PO (22:36)
[2024-04-28] VITALS (13 sets, daily range): BP systolic 98–165; BP diastolic 50–93; PULSE 76; O2SAT 98; BMI 26.9
--- NOTE | 2024-04-28 04:23 | DOWNTIME ---
There was a [employer] Client Stem Setter Downtime on 04/28/2024 from 0100 to 04/29/2023 at 0420 . Downtime documentation of patient's care, including medication administrations, has been reconciled in the electronic record per guidelines. Refer to the
patient's paper chart under the miscellaneous tab to see printed paper medication records and downtime forms.
--- NOTE | 2024-04-28 04:23 | DOWNTIME ---
There was a [employer] Client Corporate Claims Examiner Downtime on 04/28/2024 from 0100 to 04/29/2023 at 0420 . Downtime documentation of patient's care, including medication administrations, has been reconciled in the electronic record per guidelines. Refer to the
patient's paper chart under the miscellaneous tab to see printed paper medication records and downtime forms.
[2024-04-28 04:44] LABS: Troponin I < 0.012 ng/ml
[2024-04-28 06:29] LABS: Hematocrit 31.1 % (37.0-47.0); Hemoglobin 11.1 g/dL (12.0-16.0); Mean Corp Hgb Conc. 35.7 g/dL (33.0-37.0); Mean Corpuscular Hgb 29.5 pg (27.0-31.0); Mean Corpuscular Volume 82.7 fL (81.0-99.0); Mean Platelet Volume 11.8 fL (7.4-10.4); Platelet Count 225 10^3/uL (130-400); Red Blood Cell Count 3.76 10^6/uL (4.20-5.40); Red Cell Dist. Width 15.2 % (11.5-14.5); White Blood Cell Count 7.8 10^3/uL (4.8-10.8)
[2024-04-28 06:45] LABS: Troponin I < 0.012 ng/ml
[2024-04-28 06:54] LABS: Blood Urea Nitrogen 11 mg/dl (7-17); Calcium 8.8 mg/dl (8.4-10.2); Carbon Dioxide 26 mmol/L (22-30); Chloride 100 mmol/L (98-107); Estimated Creatinine Clearance 67 ml/min; Glucose 108 mg/dl (70-99); Potassium 4.2 mmol/L (3.5-5.1); Sodium 132 mmol/L (135-145); eGFR > 60.00
[2024-04-28 06:56] LABS: Osmolality Urine 219 mOsm/kg (300-900)
[2024-04-28 07:02] LABS: Urine Sodium 57 mmol/L (30-90)
[2024-04-28 07:18] LABS: Cortisol, Random 9.5 ug/dl
--- NOTE | 2024-04-28 07:26 | CON.CAR ---
Addendum entered and electronically signed by Jonathan Ramirez MD 04/28/24 11:39:
I saw and examined the patient.
The Life Trainer's note was reviewed and I agree with the note.
Comment: Briefly, 78-year-old woman past medical history of prior VA/mLAD PCI (2002) and subsequent in-stent restenosis (2022) with residual nonobstructive CAD who presents with dyspnea on exertion and substernal chest pressure which occurred while
she was [place] in the mall. She was found to have significantly elevated blood pressure and was brought to [place] emergency department for evaluation.
At the time of my evaluation this morning she was resting comfortably and was chest pain-free but did report some mild chest discomfort overnight
Blood pressure has remained elevated here
Troponin has been undetectable x [address]/T wave changes more prominent than prior tracing in 2023
Spoke with patient and who was at bedside and discussed noninvasive testing with nuclear stress test versus invasive coronary angiography and they are agreeable to proceed with left heart catheterization
Will pretreat with steroids due to contrast allergy
For now continue aspirin/plavix/high intensity statin and start heparin drip for medical management of suspected unstable angina
Continue metoprolol as antianginal
Add amlodipine as additional antianginal and for tighter blood pressure control
Rest per Janessa Eaton
Original Note:
Consultation
Consultation Request
Date/Time Consultation Requested: 04/27/24 at 2325
Date/Time Consultation Performed: 04/28/22 at 0738
Requesting Provider: Dr. Rashid
Performing Provider: Dr. Richter
Reason for Consultation: Chest pain, CAD
Medical History
-
History of Present Illness:
Patient came to [facility] yesterday with chest pain that felt identical to previous VA and cardiology is now consulted. Patient says that she was walking for exercise at the mall yesterday and after walking from one side to the other she started to walk
back to the other side and started with a substernal chest pressure radiating to her ears, neck and jaw B/L and all of these symptoms felt similar to previous PCI in 2022. Back in 2022 patient had chest pain and ear/jaw pain that was initially
evaluated at [facility] with undetectable Troponins resulting in d/c and then she came to [facility] where she had more undetectable Troponins, but given similarity to previous symptoms from when she had original LAD PCI in 2002 she was taken
to paint laboratory technician where she was found to have 30% ostial/prox LAD, long 60-70% stenosis in the mid LAD beginning just beyond the first septal windows infrastructure engineer. moderate in-stent restenosis with a focal 95% segment of restenosis in the proximal 1/3-1/2 of the
prior stent. Patient had 2.5 mm Xience to mid LAD. No symptoms since PCI until yesterday. Pain free now, but had chest pain at rest last night.
PMH:
CAD
remote LAD PCI 2002
s/p 2.5 mm Xience to mid LAD just distal to the previously placed stent 02/18/22
HTN
Hyperlipidemia
DM 2
History of IV contrast allergy
Past Medical History
Past Medical History: CAD, HTN, Hypercholesterolemia, NIDDM, VA and Other (Kidney stones, history of splenectomy, GERD,)
Past Surgical History: Other (Lithotripsy, splenectomy, left heart catheterization 2002, appendectomy)
Social History
Tobacco: Non-Smoker
Alcohol: Other (Rare alcohol)
Drug: None
Personal:
Living: With Family
Employment: Retired
Family History
Family History: CAD, Cancer and Hypertension
Allergies / Home Medications
Allergy/AdvReac Type Severity Reaction Status Date / Time
ciprofloxacin Allergy Shortness Verified 04/27/24 19:41
of Breath
and rash
Iodinated Contrast Media Allergy shortness Verified 04/27/24 19:41
[Iodinated Contrast Media - of breath
Oral and] and rash
iodine [Iodine] Allergy shortness Verified 04/27/24 19:41
of breath
and rash
potassium iodide Allergy shortness Verified 04/27/24 19:41
of breath
and rash
sodium iodide Allergy shortness Verified 04/27/24 19:41
of breath
and rash
Sulfa (Sulfonamide Allergy shortness Verified 04/27/24 19:41
Antibiotics) of breath
and rash
�Medication �Instructions �Recorded �Confirmed �Type
aspirin 81 mg tablet,delayed 81 mg PO DAILY 01/13/08 04/27/24 History
release
metformin 500 mg tablet,extended 500 mg PO QPM 06/03/16 04/27/24 History
release 24 hr
atorvastatin 80 mg tablet 80 mg PO QPM High cholesterol #30 02/19/22 04/27/24 Rx
tabs
metoprolol tartrate 50 mg tablet 50 mg PO BID Heart 02/19/22 04/27/24 Rx
disease/condition #60 tabs
clopidogrel 75 mg tablet (Plavix) 75 mg PO DAILY 02/12/24 04/27/24 History
multivitamin 1 tab PO DAILY 02/12/24 04/27/24 History
Review of Systems
-
History Source: Patient
All other systems: Negative unless noted
Physical Exam
Vital Signs
Temp Pulse Resp BP Pulse Ox
98.0 F 74 18 149/77 99
04/28/24 03:39 04/28/24 03:39 04/28/24 03:39 04/28/24 03:39 04/28/24 03:39
General: NAD. AAO x3
Skin: Warm, dry and pink. No rash
HEENT: EOMI, MMM
Respiratory: CTA B/L without wheeze or rales
Cardiac: Reg, no murmur
GI: +BS, ND, NT, soft
PV: No clubbing, cyanosis, lesions or edema B/L
Neuro: No focal or lateralizing weakness
Lab Results
04/28/24 05:56
04/28/24 05:56
Troponin I < 0.012 ng/ml 04/28/24 05:56
Impression / Plan
-
PCP: Dr. Valery Richardson
Scientific Illustrator: Dr. Dale
Impression:
Chest pain/[place]
CAD
remote LAD PCI 2002
s/p 2.5 mm Xience to mid LAD just distal to the previously placed stent 02/18/22
Undetectable serial cardiac troponin
HTN
Hyperlipidemia
DM 2
History of IV contrast allergy
Echo 02/19/22: EF 62%, normal diastolic function, mild septal hypertrophy, mild MR
Plan:
-Patient came to [facility] yesterday with chest pain that felt identical to previous VA and cardiology is now consulted. Patient says that she was walking for exercise at the mall yesterday and after walking from one side to the other she started to walk
back to the other side and started with a substernal chest pressure radiating to her ears, neck and jaw B/L and all of these symptoms felt similar to previous PCI in 2022. Back in 2022 patient had chest pain and ear/jaw pain that was initially
evaluated at [facility] with undetectable Troponins resulting in d/c and then she came to [facility] where she had more undetectable Troponins, but given similarity to previous symptoms from when she had original LAD PCI in 2002 she was taken
to paint laboratory technician where she was found to have 30% ostial/prox LAD, long 60-70% stenosis in the mid LAD beginning just beyond the first septal windows infrastructure engineer. moderate in-stent restenosis with a focal 95% segment of restenosis in the proximal 1/3-1/2 of the
prior stent. Patient had 2.5 mm Xience to mid LAD. No symptoms since PCI until yesterday. Pain free now, but had chest pain at rest last night.
-ECG reviewed by me is SR without acute ST changes.
-Outpatient doses of aspirin and Plavix have been continued.
-Resting pain overnight, consider starting Heparin gtt
-Talked with patient about pursuing cardiac cath given clinical picture and she is agreeable. Patient with IV contrast allergy, reaction is SOB. Will confer with interventional cardiology about allergy prep and how this may effect timing of cath.
-Check echo
-LDL 67 by outpatient CVE 09/2023. Recheck now, ordered by me. Outpatient dose of atorvastatin 80 mg daily has been continued
-Outpatient dose of Lopressor 50 mg BID has been continued
-HgbA1c pending. Outpatient dose of metformin on hold
[2024-04-28 07:49] LABS: Glucose - Point of Care 109 mg/dl (70-99)
--- NOTE | 2024-04-28 08:44 | W.PN.HOSP.TC ---
Today's Communication/Plan
-
see A/P
Assessment / Plan
Assessment / Plan
70-year-old female with past medical history significant for coronary artery disease status post LAD stent, hyperlipidemia, diabetes not on insulin, presented with episode of chest discomfort and palpitations.
Patient reported she was walking when she experienced chest pressure radiating to her right ear and associated with sensation of pounding in her right ear. She did not have dyspnea on exertion.
Patient recalls that the symptoms were similar to another episode in 2022 where she had pressure, palpitations or syncope and was found to have 90% stenosis in the stent that was placed in 2002. She had cath in 2022 with PCI to the old stent and
placement of a new stent. She has been on aspirin and Plavix since then. She denies any symptoms since then up until the DOA.
A/P:
# Intermittent chest pressure associated with BL ear fullness
# h/o ACS s/p PCI to LAD
Noted troponin negative x3
s/p aspirin 324 x 1, cont baby aspirin and Plavix
continue home metoprolol 50 bid
continue home statin
SL NTG PRN
Follow echo
Cardiology consult
Check COVID and Flu for ear fullness
# NIDDM
Holding POSTAL SUPPORT EMPLOYEE metformin
cover with ISS
# Hyponatremia, improving
check repeat random cortisol to validate finding
TSH 3.4
DVT PPX - lovenox sq
code status - Full code
Anticipated Discharge: 24 - 48 hours
Subjective/Interval History
-
Date of Service: April 28, 2024
Objective Data
-
Labs:
Laboratory Results
04/28/24
05:56
WBC 7.8
Hgb 11.1 L
Hct 31.1 L
Plt Count 225
Sodium 132 L
Potassium 4.2
Chloride 100
Carbon Dioxide 26
BUN 11
Creatinine 0.6
Glucose 108 H
Calcium 8.8
Vital Signs:
Vital Signs
Temp Pulse Resp BP Pulse Ox
36.7 C 74 18 149/77 99
04/28/24 03:39 04/28/24 03:39 04/28/24 03:39 04/28/24 03:39 04/28/24 03:39
I&O
04/27/24 04/28/24 04/29/24
06:59 06:59 06:59
Output Total 500 / 500
Balance -500 / -500
Review of Systems
-
History Source: Patient
EENT: Reports Other (ear fullness)
Cardiac: Reports Other (intermittent chest pressure)
Physical Exam
-
General: Well Developed, Well Nourished, No Apparent Distress, Comfortable and Conversant
HEENT: Normocephalic and Atraumatic; Negative Oxygen
Respiratory: Clear to Auscultation and Non Labored Respirations; Negative Accessory Resp Muscle Use
Cardiac: Regular Rhythm and S1/S2
GI: Soft, Nontender, Nondistended and Normal Bowel Sounds
Neuro: Awake, Alert and Oriented
Psych: Calm and Intact Judgement/Insight
Data Reviewed
-
Labs: Labs Reviewed by me and Discussed with Patient
[2024-04-28] MEDS: PLAVIX 75 MG PO (09:49)
[2024-04-28] MEDS: ASPIR LOW (ENTERIC COATED) 81 MG PO (09:50)
[2024-04-28] MEDS: LOPRESSOR 50 MG PO (09:50)
[2024-04-28 10:00] LABS: Glycohemoglobin (HgbA1c) 6.1 % (4.0-5.6)
[2024-04-28] MEDS: DELTASONE 60 MG PO ×2 (10:00→13:44)
[2024-04-28 10:15] LABS: APTT 26.9 Sec (23.4-35.0)
[2024-04-28 10:22] LABS: COVID-19 Antigen Negative (Negative)
[2024-04-28] MEDS: HEPARIN 25000 UNITS/250 ML IV (10:37)
[2024-04-28 10:44] LABS: Cortisol, Random 12.5 ug/dl
[2024-04-28 12:33] LABS: Glucose - Point of Care 134 mg/dl (70-99)
[2024-04-28] MEDS: NORVASC 2.5 MG PO (13:44)
[2024-04-28 14:30] LABS: HDL Cholesterol 72 mg/dl; LDL Cholesterol, Calculated 71 mg/dl; Total Cholesterol 156 mg/dl (50-199); Triglyceride 67 mg/dl (10-149); Very Low Density Lipoprotein 13 mg/dl (0-30)
[2024-04-28 15:22] LABS: ACT-LR - POC 253 Seconds (116-155)
--- NOTE | 2024-04-28 16:15 | ITS.CL.CATH ---
Rhinologist - Catheterization
Cardiac Catheterization
Procedure Report:
LEFT HEART CATHETERIZATION
Date of Procedure: Jonathan Ramirez MD
Referring: April 28, 2024
PROCEDURES:
1. Left heart catheterization, coronary angiogram.
2. Ultrasound-guided access
3. Functional physiologic testing with IFR of proximal LAD.
INDICATION: Concern for unstable angina.
ACCESS: Right radial artery, 6 Burkinan sheath, under ultrasound guidance
Ultrasound was utilized for vascular access. The radial artery was visualized under ultrasound, and the vessel was patent and pulsatile. An image was stored permanently in the patient's medical record. Under direct ultrasound guidance, a 6 Burkinan
sheath was inserted into the artery using a micropuncture kit through a modified Seldinger technique.
HEMODYNAMICS : (mmHg)
AO (s/d) : 133/64
LV (s/d) : 135/8
LVEDP : 13
CORONARY FINDINGS
DOMINANCE: Right
LEFT MAIN: There is a large caliber, very short left main, almost cloacal, with minimal luminal irregularities.
LEFT ANTERIOR DESCENDING: The left anterior descending artery is a medium caliber vessel which gives rise to multiple small caliber diagonal branches. Proximal LAD has 50 to 60% tubular stenosis. Previously placed stent have mild diffuse in-stent
restenosis. Distal to the stents and mid to distal LAD there is tubular up to 60-70% stenosis.
CIRCUMFLEX: The left circumflex artery is a medium caliber vessel which gives rise to 1 major obtuse marginal branch. OM1 in its proximal portion has 50% stenosis.
RIGHT CORONARY ARTERY: The right coronary artery is a medium caliber, dominant vessel which gives rise to the right posterior descending artery on the right posterolateral system. Mid RCA has diffuse up to 30 to 40% stenosis. Distal RCA at the
crux of bifurcation of RPDA and RPL has 40 to 50% stenosis.
HEMODYNAMIC ASSESSMENT OF THE PROXIMAL LAD WITH A [employer] OMNI WIRE: The origin of the left coronary artery was cannulated with a 6 Fr EBU 3.5 guide catheter. Intravenous heparin was administered and the ACT was followed during the procedure. Two
hundred micrograms of intracoronary nitroglycerin was given through the guide catheter. A Rootless Omni wire was advanced to the guide catheter tip and normalized just outside the guide catheter. The Omni wire was then carefully manipulated across
the stenosis in the proximal LAD with the iFR above the ischemic threshold serially measuring 0.96 x 3. The Omni wire was then pulled back to the guide catheter where the Pd/Pa measured 1.0 confirming no baseline drift in pressure readings
SEDATION:47 minutes of procedural sedation was utilized. An independent medical laboratory scientist was present to assist with and help manage the patient's level of consciousness and physiologic status.
RADIATION SUMMARY: Fluoro Time (min): 11.7, Dose (mGy): 387.64, DAP (Gy.cm2) : 22.4
Closure Device: Vascular band over right radial artery, 10 cc of air.
CONCLUSIONS
1. Moderate coronary artery disease.
2. Proximal LAD has a 50 to 60% tubular stenosis which is IFR negative at 0.96.
3. Distal LAD has tubular 60 to 70% stenosis.
4. Mid RCA has 30 to 40% stenosis and distal RCA at the crux/bifurcation of RPDA and RPL has 40-50 percent stenosis.
RECOMMENDATIONS
1. Optimization of medical therapy including antianginals in case some of her symptoms may be related to small vessel disease increasing Lopressor and adding amlodipine 2.5 mg daily in the setting of hypertension here. Close monitoring of
hemodynamics to make sure medication changes do not lead to any bradycardia or hypotension.
2. Aggressive management of cardiovascular risk factors.
3. Echocardiogram was reviewed showing normal biventricular function without significant valvular abnormalities. Troponins continue to stay normal.
4. If despite medical therapy, her symptoms remain persistent without any other clear etiology to explain the symptoms, would consider PCI to distal LAD.
Copy to: Elian Dale D.O.
Tayla Lin MD, FAC, [facility]
[2024-04-28] MEDS: NSS 1000 IV (16:33)
[2024-04-28 16:45] LABS: Glucose - Point of Care 131 mg/dl (70-99)
[2024-04-28] MEDS: LIPITOR 80 MG PO (17:28)
[2024-04-28] MEDS: LOPRESSOR 75 MG PO (21:00)
[2024-04-28 22:05] LABS: Glucose - Point of Care 158 mg/dl (70-99)
[2024-04-29 03:55] VITALS: BP 127/65
[2024-04-29 07:33] VITALS: BP 122/67
[2024-04-29 07:52] LABS: Glucose - Point of Care 130 mg/dl (70-99)
[2024-04-29 08:31] LABS: Hematocrit 34.6 % (37.0-47.0); Hemoglobin 11.7 g/dL (12.0-16.0); Mean Corp Hgb Conc. 33.8 g/dL (33.0-37.0); Mean Corpuscular Volume 85.9 fL (81.0-99.0); Mean Platelet Volume 11.4 fL (7.4-10.4); Platelet Count 235 10^3/uL (130-400); Red Blood Cell Count 4.03 10^6/uL (4.20-5.40); Red Cell Dist. Width 15.7 % (11.5-14.5); White Blood Cell Count 13.2 10^3/uL (4.8-10.8)
[2024-04-29] MEDS: LOPRESSOR 75 MG PO (08:45)
[2024-04-29] MEDS: NORVASC 2.5 MG PO (08:46)
[2024-04-29] MEDS: PLAVIX 75 MG PO (08:46)
[2024-04-29] MEDS: ASPIR LOW (ENTERIC COATED) 81 MG PO (08:46)
[2024-04-29 08:56] LABS: Blood Urea Nitrogen 19 mg/dl (7-17); Calcium 9.6 mg/dl (8.4-10.2); Carbon Dioxide 23 mmol/L (22-30); Chloride 100 mmol/L (98-107); Estimated Creatinine Clearance 50 ml/min; Glucose 138 mg/dl (70-99); Magnesium 1.9 mg/dl (1.6-2.3); Potassium 4.5 mmol/L (3.5-5.1); Sodium 136 mmol/L (135-145); eGFR > 60.00
--- NOTE | 2024-04-29 09:04 | W.PN.CARDCBS ---
Addendum entered and electronically signed by Cleve Acosta MD 04/29/24 11:59:
78-year-old woman with LAD PCI in 2002 for anterior [place], Xience stent to mid LAD stent 2022 for in-stent restenosis and progressing of LAD disease admitted with chest pain and had cath on 04/28/2024. Still with pressure in her ears but feels better.
Heart rate is typically in the 70s, she has been tolerating higher dose of metoprolol ER 75 mg twice daily for 2 or 3 doses. Blood pressure is typically ideal at home, LDL is above target
PMH:CAD/PCI as above, hypertension, hyperlipidemia, diabetes
PSH: Splenectomy, renal calculi
Current meds: Aspirin 81 mg a day, atorvastatin 80 mg a day, clopidogrel 75 mg a day, amlodipine 2.5 mg daily, metoprolol tartrate 75 twice daily
122/67, pulse 75, resp rate 18, afebrile, head neck exam unremarkable, lungs are clear, regular rate and rhythm, abdomen benign, extremities without clubbing cyanosis or edema
Cardiac catheterization 04/28/2024: 50 to 60% proximal LAD, mid to distal 60 to 70% LAD stenosis mild in-stent restenosis, mid RCA 30-40% stenosis at the crux 40 to 50% stenosis, negative IFR, OM1 with proximal 50% stenosis
Echo 04/28/2024: EF 55-60%, mild LVH, mild MR, normal pulmonary artery press
White count 13.2, hemoglobin 11.7, BUN and creatinine 19 and 0.8, potassium 4.5, LDL was 71
ACTH stim is pending, troponins were undetectable
Impression:
Chest pain with moderate CAD
Patent stents
Hypertension
Hypercholesterolemia
Type 2 diabetes
Plan:
Okay for discharge from cardiac standpoint
Recommended cardiac meds:
Atorvastatin 80 mg a day
Aspirin 81 mg a day
Clopidogrel 75 mg daily
Amlodipine 2.5 mg daily
Ezetimibe 10 mg daily
Metoprolol tartrate 100 mg twice daily
Patient could be considered for SGLT2 antagonist for cardiovascular risk reduction and diabetes
We will arrange for cardiac follow-up
Original Note:
Today's Communication / Plan
-
Okay for discharge
Medical management CAD
Follow-up made at [facility], appointment with LAURENT Norman on 05/20/2024
Impression / Plan
-
PCP: Dr. Valery Richardson
Publicity Agent: Dr. Dale
Impression:
Chest pain/[place]
CAD
remote LAD PCI 2002
s/p 2.5 mm Xience to mid LAD just distal to the previously placed stent 02/18/22 (at [place])
Undetectable serial cardiac troponin
HTN
Hyperlipidemia
DM 2
History of IV contrast allergy
Echo 02/19/22: EF 62%, normal diastolic function, mild septal hypertrophy, mild MR
Cardiac cath 04/28/2024: mod CAD
LEFT MAIN: There is a large caliber, very short left main, almost cloacal, with minimal luminal irregularities.
LEFT ANTERIOR DESCENDING: The left anterior descending artery is a medium caliber vessel which gives rise to multiple small caliber diagonal branches. Proximal LAD has 50 to 60% tubular stenosis. Previously placed stent have mild diffuse in-stent
restenosis. Distal to the stents and mid to distal LAD there is tubular up to 60-70% stenosis. iFR above the ischemic threshold serially measuring 0.96 x 3
CIRCUMFLEX: The left circumflex artery is a medium caliber vessel which gives rise to 1 major obtuse marginal branch. OM1 in its proximal portion has 50% stenosis.
RIGHT CORONARY ARTERY: The right coronary artery is a medium caliber, dominant vessel which gives rise to the right posterior descending artery on the right posterolateral system. Mid RCA has diffuse up to 30 to 40% stenosis. Distal RCA at the
crux of bifurcation of RPDA and RPL has 40 to 50% stenosis.
Echo 04/28/2024:
-Left ventricle is small in size. Normal left ventricular systolic function. No
regional wall motion abnormalities are seen. LV ejection fraction is 55-60% by
Reyes's method of discs. Mild concentric left ventricular hypertrophy. Normal
diastolic function.
Normal right ventricular size and function.
Mild mitral regurgitation.
Mild tricuspid regurgitation. Estimated pulmonary artery pressure of 25-30 mmHg
assuming a right atrial pressure of 3 mmHg.
Plan:
-Patient came to [facility] 04/27/2024 with chest pain that felt identical to previous [place]. Patient says that she was walking for exercise at the mall yesterday and after walking from one side to the other she started to walk back to the other side and
started with a substernal chest pressure radiating to her ears, neck and jaw B/L and all of these symptoms felt similar to previous PCI in 2022. Back in 2022 patient had chest pain and ear/jaw pain that was initially evaluated at [facility]
center with undetectable Troponins resulting in d/c and then she came to [facility] where she had more undetectable Troponins, but given similarity to previous symptoms from when she had original LAD PCI in 2002 she was taken to collaborating supervising physician where she was
found to have 30% ostial/prox LAD, long 60-70% stenosis in the mid LAD beginning just beyond the first septal city administrator. moderate in-stent restenosis with a focal 95% segment of restenosis in the proximal 1/3-1/2 of the prior stent. Patient had
2.5 mm Xience to mid LAD. No symptoms since PCI until 04/26/2024. EKG without acute ST changes. Troponin normal
-s/p [facility] 04/28/2024: mod CAD, no intervention, report as above
-Optimization of medical therapy including antianginals in case some of her symptoms may be related to small vessel disease- increased Lopressor and added amlodipine 2.5 mg daily post cath on 04/28/2024 in the setting of hypertension here. Close
monitoring of hemodynamics to make sure medication changes do not lead to any bradycardia or hypotension.
-cont outpt doses ASA and Plavix
-added amlodipine 2.5 mg daily
-uptitrated Metoprolol to 75 mg bid.
-telem personally reviewed: Normal sinus rhythm heart rate 70s to 80s
-Aggressive management of cardiovascular risk factors.
-Echocardiogram 04/28/2024 was reviewed showing normal biventricular function without significant valvular abnormalities
-If despite medical therapy, her symptoms remain persistent without any other clear etiology to explain the symptoms, would consider PCI to distal LAD.
-LDL 71 04/28/2024 Outpatient dose of atorvastatin 80 mg daily has been continued. t/c add Zetia
-HgbA1c 6.1. Outpatient dose of metformin on hold post cath, can resume 04/30/2024
Progress Note - Publicity Agent
Subjective
Date of Service: April 29, 2024
walking around halls without chest discomfort
would like to go home
Objective
Labs:
04/29/24 07:59
04/29/24 07:59
Labs
Hgb 11.7 g/dL (12.0-16.0) L 04/29/24 07:59
Hct 34.6 % (37.0-47.0) L 04/29/24 07:59
Plt Count 235 10^3/uL (130-400) 04/29/24 07:59
APTT Cancelled 04/28/24 16:40
Sodium 136 mmol/L (135-145) 04/29/24 07:59
Potassium 4.5 mmol/L (3.5-5.1) 04/29/24 07:59
BUN 19 mg/dl (7-17) H 04/29/24 07:59
Creatinine 0.8 mg/dL (0.6-1.0) 04/29/24 07:59
Glucose 138 mg/dl (70-99) H 04/29/24 07:59
Troponins
04/27/24 04/27/24 04/28/24
18:12 23:25 03:06
Troponin I < 0.012 Cancelled < 0.012
04/28/24
05:56
Troponin I < 0.012
Vital Signs and I&O:
Vital Signs
Temp Pulse Resp BP Pulse Ox
98.1 F 75 18 122/67 97
04/29/24 07:33 04/29/24 08:45 04/29/24 07:33 04/29/24 08:45 04/29/24 07:33
Vital Signs
Temp Pulse Resp BP Pulse Ox
98.1 F 75 18 122/67 97
04/29/24 07:33 04/29/24 08:45 04/29/24 07:33 04/29/24 08:45 04/29/24 07:33
Intake & Output
04/27/24 04/28/24 04/29/24 04/30/24
06:59 06:59 06:59 06:59
Intake Total 480 / 480
Output Total 500 / 500
Balance -20 / -20
Physical Exam
Physical Exam
GEN: No distress, awake, Ox3
HEENT: supple, anicteric, mmm
LUNGS: CTA, no wheezes/rales
CV: Reg, S1/S2,no murmur
ABD: soft, BS+, NT/ND
EXT: No edema
NEURO: Gross non-focal
SKIN: No rash, R radial cath puncture site with occlusive
[2024-04-29] MEDS: NSS (PRESERVATIVE FREE) 1 ML IV (09:06)
[2024-04-29] MEDS: CORTROSYN 0.25 MG IV (09:07)
--- NOTE | 2024-04-29 09:21 | W.PN.HOSP.TC ---
Addendum entered and electronically signed by Shira Rashid MD 04/29/24 12:46:
total DC time 38 min
Original Note:
Today's Communication/Plan
-
see A/P
Assessment / Plan
Assessment / Plan
70-year-old female with past medical history significant for coronary artery disease status post LAD stent, hyperlipidemia, diabetes not on insulin, presented with episode of chest discomfort and palpitations.
Patient reported she was walking when she experienced chest pressure radiating to her right ear and associated with sensation of pounding in her right ear. She did not have dyspnea on exertion.
Patient recalls that the symptoms were similar to another episode in 2022 where she had pressure, palpitations or syncope and was found to have 90% stenosis in the stent that was placed in 2002. She had cath in 2022 with PCI to the old stent and
placement of a new stent. She has been on aspirin and Plavix since then. She denies any symptoms since then up until the DOA.
A/P:
# Intermittent chest pressure associated with BL ear fullness
# h/o ACS s/p PCI to LAD
Noted troponin negative x3
s/p aspirin 324 x 1, cont baby aspirin and Plavix
metoprolol increased from 50 bid to 75 mg BID
continue home statin
SL NTG PRN
s/p cath 04/28: noted Moderate coronary artery disease. Proximal LAD 50 to 60% tubular stenosis which is IFR negative at 0.96. Distal LAD has tubular 60 to 70% stenosis. Mid RCA has 30 to 40% stenosis and distal RCA at the crux/bifurcation of RPDA
and RPL has 40-50 % stenosis.
Recc medical therapy, increased Lopressor as above and added amlodipine 2.5 mg daily in the setting of hypertension here.
Echo showed normal biventricular function without significant valvular abnormalities. EF 55-60%. Normal diastolic function. Compared to prior study dated 08/20/23, there is no significant change.
COVID and Flu were checked for ear fullness, both negative
# NIDDM
Holding [employer] metformin
cover with ISS
# Hyponatremia, resolved
# Equivocal random cortisol level
Check stim test
# Mild leucocytosis suspect reactive
monitor
DVT PPX - lovenox sq
code status - Full code
Dispo: PT eval: no need
DW Card team
Anticipated Discharge: Today
Subjective/Interval History
-
Date of Service: April 29, 2024
Objective Data
-
Labs:
Laboratory Results
04/28/24 04/29/24
16:40 07:59
WBC 13.2 H
Hgb 11.7 L
Hct 34.6 L
Plt Count 235
APTT Cancelled
Sodium 136
Potassium 4.5
Chloride 100
Carbon Dioxide 23
BUN 19 H
Creatinine 0.8
Glucose 138 H
Calcium 9.6
Vital Signs:
Vital Signs
Temp Pulse Resp BP Pulse Ox
36.7 C 75 18 122/67 97
04/29/24 07:33 04/29/24 08:45 04/29/24 07:33 04/29/24 08:45 04/29/24 07:33
I&O
04/28/24 04/29/24 04/30/24
06:59 06:59 06:59
Intake Total 480 / 480
Output Total 500 / 500
Balance -20 / -20
Review of Systems
-
History Source: Patient
All other systems: Reviewed and negative
Physical Exam
-
General: Well Developed, Well Nourished, No Apparent Distress, Comfortable and Conversant
HEENT: Normocephalic and Atraumatic; Negative Oxygen
Respiratory: Clear to Auscultation and Non Labored Respirations; Negative Accessory Resp Muscle Use
Cardiac: Regular Rhythm and S1/S2
GI: Soft, Nontender, Nondistended and Normal Bowel Sounds
Neuro: Awake, Alert and Oriented
Psych: Calm and Intact Judgement/Insight
Data Reviewed
-
Medical Tests (Nuc Med, Echo etc): Report Reviewed by me (cath report )
Labs: Labs Reviewed by me and Discussed with Patient
--- NOTE | 2024-04-29 11:03 | CM ---
Alert awake oriented patient who lives with her Antoinette in a 2 story home with 0 steps to enter and 16 to bed bathroom. She is independent in driving and in all activities of daily living.Offered VN she declined.No adaptive devices.
will drive her home.Pt agrees with dc.
Never had VN/SNF
Pharmacy [facility]
PCP Dr Arpita Richardson
PLAN Home no needs
[2024-04-29 11:15] VITALS: BP 135/55
[2024-04-29 11:36] LABS: ACTH Stim Cortisol 0 Min 4.6 ug/dl
[2024-04-29 11:48] LABS: ACTH Stim Cortisol 30 Min 18.8 ug/dl
[2024-04-29 11:50] LABS: ACTH Stim Cortisol 60 Min 24.5 ug/dl
--- NOTE | 2024-04-29 12:34 | W.DCSUMMARY ---
Discharge Summary
Discharge Data
Date of Admission: 04/29/24
Date of Discharge: 04/29/24
-
Pending Results: No
Hospital Course
Principal Diagnosis:
Intermittent chest pressure due to chronic coronary artery disease
Chronic Diagnoses:�
Gal-[id number] diabetes
History of coronary artery disease status post PCI to LAD
Consultations:�
Cardiology
Procedures:�
Cardiac catheterization on 04/28/2024.
Clinical course:�
This is a 78-year-old female, with past medical history as stated above, who presented with intermittent chest pressure.
Problem 1:
Intermittent chest pressure due to chronic coronary artery disease.
Of note, her troponin was negative x 3, and EKG was unrevealing (normal sinus rhythm).
She was given full dose aspirin 325 mg x 1, and was continued with baby aspirin and Plavix.
She underwent cardiac cath 04/28 which showed moderate coronary artery disease (proximal LAD 50 to 60% stenosis, distal LAD 60 to 70% stenosis, mid RCA 30 to 40% stenosis, distal RCA 40 to 50% stenosis).
Her prior to admission metoprolol tartrate was increased from 50 mg twice daily to 100 mg twice daily.
In addition to continuing her home high intensity statin with Lipitor 80 mg daily, ezetimibe 10 mg daily was added this admission.
Of note, her echo showed normal biventricular function without significant valvular abnormalities. EF 55-60%. Normal diastolic function. Compared to prior study dated 08/20/23, there is no significant change.
As for the rest of her medical problems, they were stable during her hospital stay.
Discharge Plan
-
Patient Disposition: Home (Routine Discharge)
Discharge Diagnosis/Procedures: Intermittent chest pressure with chronic coronary artery disease;
non-insulin dependent diabetes
Condition: Fair
Diet: As tolerated and Low Cholesterol
Activity: As tolerated
Driving Restrictions: No driving for 24 hours
Stand Alone Forms: DC Instructions- Cath/EP Lab
Referrals:
Keeley Hwang CRNP [Specified Professional Personl] - 05/20/24 8:20 am (you have an appointment with Dr Dale's nurse practitioner in the [place] office.)
Valery Richardson MD [Family Provider] - in less than 1 week
Additional Discharge Medication Instructions: Hold Metformin post cath, resume on Friday evening
Your Toprol dose was increased from 50 to 100 mg twice daily.
We have added Norvasc 2.5 daily to better control your blood pressure.
Prescriptions:
New
amlodipine 2.5 mg Tablet
2.5 mg PO DAILY Qty: 30 0RF
metoprolol tartrate 100 mg Tablet
100 mg PO BID Qty: 60 0RF
ezetimibe 10 mg Tablet
10 mg PO DAILY Qty: 30 0RF
Continued
aspirin 81 MG tablet,delayed release (DR/EC)
81 mg PO DAILY
atorvastatin 80 mg Tablet
80 mg PO QPM Qty: 30 11RF
clopidogrel [Plavix] 75 mg Tablet
75 mg PO DAILY
multivitamin Tablet
1 tab PO DAILY
Held
metformin 500 MG tablet extended release 24 hr
500 mg PO QPM
Hold Instructions: Resume on 02/21/22. Restart usual dose of metformin 02/21/22
Discontinued
metoprolol tartrate 50 mg Tablet
50 mg PO BID Qty: 60 11RF
Rx Instructions:
Incr Lopressor(metoprolol tartrate)to 50 mg(two 25 mg tabs or one 50 mg tab)2x a day
Discharge Orders:
Discharge Patient (As Directed); Ordered 04/29/24
Ordered By: Shira Rashid
Discharge Date and Time
Discharge Date/Time: 04/29/24 11:59
Print Language: NIUEAN
== END 2024-04-29 11:59 | disposition home or self-care (01) | DRG 287 ==
LOC: 4 EAST ACU 07:52
PROVIDERS: Emergency Medicine; Nuclear Medicine Nuclear Cardiology; Physician Assistant Medical; ADMITTING PHYSICIAN Internal Medicine; ATTENDING PHYSICIAN Internal Medicine; CONSULT PHYSICIAN Internal Medicine Cardiovascular Disease; EMERGENCY PHYSICIAN Emergency Medicine; FAMILY PHYSICIAN Family Medicine
PROC: B2111ZZ Fluoroscopy of Multiple Coronary Arteries using Low Osmolar Contrast (ICD-10-PCS; 2024-04-28)
PROC: 4A023N7 Measurement of Cardiac Sampling and Pressure, Left Heart, Percutaneous Approach (ICD-10-PCS; 2024-04-28)
PROC: 4A033BC Measurement of Arterial Pressure, Coronary, Percutaneous Approach (ICD-10-PCS; 2024-04-28)
DX: I25.10 Atherosclerotic heart disease of native coronary artery without angina pectoris (principal); E87.1 Hypo-osmolality and hyponatremia; E11.9 Type 2 diabetes mellitus without complications; Z79.84 Long term (current) use of oral hypoglycemic drugs; E78.00 Pure hypercholesterolemia, unspecified; Z11.52 Encounter for screening for COVID-19; D50.9 Iron deficiency anemia, unspecified; I25.2 Old myocardial infarction; Z95.5 Presence of coronary angioplasty implant and graft; Z90.81 Acquired absence of spleen; Z88.1 Allergy status to other antibiotic agents; Z91.041 Radiographic dye allergy status; Z88.2 Allergy status to sulfonamides; Z79.82 Long term (current) use of aspirin; I10 Essential (primary) hypertension; K21.9 Gastro-esophageal reflux disease without esophagitis; Z79.02 Long term (current) use of antithrombotics/antiplatelets; Z79.899 Other long term (current) drug therapy
CPT/HCPCS: 71046; 76937; 80048; 80053; 80061; 82533; 82962; 83036; 83735; 83935; 84300; 84443; 84484; 85025; 85027; 85347; 85379; 85730; 87502; 87811; 93005; 93306; 93458; 93799; 97163; 99152; 99153; 99285; C1769; C1894; Q9967

== ENCOUNTER 2024-05-27 06:15 | Day surgery (SDC) | payer MEDICARE, SELFPAY ==
[2024-05-27 08:16] LABS: Glucose - Point of Care 103 mg/dl (70-99)
== END 2024-05-27 10:15 | disposition home or self-care (01) ==
LOC: GI 06:15
PROVIDERS: ATTENDING PHYSICIAN Specialist; FAMILY PHYSICIAN Family Medicine
DX: K31.89 Other diseases of stomach and duodenum (principal); K22.89 Other specified disease of esophagus; K22.70 Barrett's esophagus without dysplasia; K31.A12 Gastric intestinal metaplasia without dysplasia, involving the body (corpus); K31.A13 Gastric intestinal metaplasia without dysplasia, involving the fundus
CPT/HCPCS: 43239; 88305; 82962; 88342

== ENCOUNTER → 2024-05-29 09:23 | Outpatient (REF) | payer MEDICARE, SELFPAY | LOC: WDC 09:23 | PROVIDERS: ATTENDING PHYSICIAN Family Medicine | DX: Z12.31 Encounter for screening mammogram for malignant neoplasm of breast (principal) | CPT/HCPCS: 77063; 77067 ==

== ENCOUNTER → 2024-06-21 09:18 | Outpatient (REF) | payer MEDICARE, SELFPAY | LOC: PAVMRI 09:18 | PROVIDERS: ATTENDING PHYSICIAN Specialist | DX: K65.4 Sclerosing mesenteritis (principal) | CPT/HCPCS: 74183; A9575 ==

== ENCOUNTER 2024-09-10 06:30 | Day surgery (SDC) | payer MEDICARE, SELFPAY ==
[2024-09-10 07:53] LABS: Glucose - Point of Care 120 mg/dl (70-99)
== END 2024-09-10 09:14 | disposition home or self-care (01) ==
LOC: GI 06:30
PROVIDERS: ATTENDING PHYSICIAN Specialist
DX: Z12.11 Encounter for screening for malignant neoplasm of colon (principal); D12.0 Benign neoplasm of cecum; D12.3 Benign neoplasm of transverse colon; Z80.0 Family history of malignant neoplasm of digestive organs
CPT/HCPCS: 45385; 82962; 88305

== ENCOUNTER → 2025-02-07 11:49 | Outpatient (REF) | payer MEDICARE, SELFPAY | LOC: PAVMRI 11:49 | PROVIDERS: ATTENDING PHYSICIAN Family Medicine | DX: K65.4 Sclerosing mesenteritis (principal) | CPT/HCPCS: 74183; A9575 ==